=== PATIENT | male | born 1995 | race American Indian/Alaskan Native ===

== ENCOUNTER 2018-08-08 17:52 | Emergency (ER) | payer OTHER ==
--- NOTE | 2018-08-08 17:57 | Emergency Department Report ---
Blank Doc - Documentation Documentation: This is a 22-year-old male that presents with sore throat and URI symptoms. This initial assessment/diagnostic orders/clinical plan/treatment(s) is/are subject to change based on patient's health status, clinical progression and re- assessment by fellow clinical providers in the ED. Further treatment and workup at subsequent clinical providers discretion. Patient/guardians urged not to elope from the ED as their condition may be serious if not clinically assessed and managed. Initial orders include: 1- Patient sent to [facility] for further evaluation and treatment 2- CXR 3- strep swab
--- NOTE | 2018-08-08 19:18 | XRay Report ---
EXAM: XR CHEST ROUTINE 2V HISTORY: cough TECHNIQUE: PA and lateral chest x-ray dated 08/08/2018 at 1812 hours. COMPARISON: None available. FINDINGS: The heart size and mediastinum are within normal limits. The lung pascual and costophrenic angles are clear. There is no acute parenchymal infiltrate, pleural effusion, or pneumothorax seen. The visua lized bony structures are within normal limits. IMPRESSION: 1. No evidence for acute cardiopulmonary disease seen. This document is electronically signed by Pablo Hale MD., August 08 2018 07:16:21 PM ET
[2018-08-08] MEDS ORDERED: BICILLIN L-A IM STA (20:09)
[2018-08-08] MEDS ORDERED: DECADRON PO STA (20:10)
--- NOTE | 2018-08-08 20:27 | Emergency Department Report ---
ED ENT HPI - General Chief complaint: Sore Throat Stated complaint: SORE THROAT Time Seen by Provider: 08/08/18 17:56 Source: patient Mode of arrival: Ambulatory Limitations: No Limitations - History of Present Illness MD complaint: sore throat -: Gradual Location: throat Severity: mild Quality: dull, constant Consistency: constant Improves with: none Worsens with: swallowing, eating Associated Symptoms: fever (feverish, did not take temperature at home), sore throat, rhinorrhea - Related Data Allergies Allergy/AdvReac Type Severity Reaction Status Date / Time No Known Allergies Allergy Unverified 08/08/18 17:55 ED Dental HPI - General Chief complaint: Sore Throat Stated complaint: SORE THROAT Time Seen by Provider: 08/08/18 17:56 Source: patient Mode of arrival: Ambulatory Limitations: No Limitations - Related Data Allergies Allergy/AdvReac Type Severity Reaction Status Date / Time No Known Allergies Allergy Unverified 08/08/18 17:55 ED Review of Systems ROS: Stated complaint: SORE THROAT Other details as noted in HPI Constitutional: denies: chills, fever Eyes: denies: eye pain, eye discharge, vision change ENT: throat pain. denies: ear pain Respiratory: denies: cough, shortness of breath, wheezing Cardiovascular: denies: chest pain, palpitations Endocrine: no symptoms reported Gastrointestinal: denies: abdominal pain, nausea, diarrhea Genitourinary: denies: urgency, dysuria Musculoskeletal: denies: back pain, joint swelling, arthralgia Skin: denies: rash, lesions Neurological: denies: headache, weakness, paresthesias Psychiatric: denies: anxiety, depression Hematological/Lymphatic: denies: easy bleeding, easy bruising ED Past Medical Hx - Past Medical History Previous Medical History?: No - Surgical History Past Surgical History?: No - Social History Smoking Status: Never Smoker Substance Use Type: None ED Physical Exam - General Limitations: No Limitations General appearance: alert, in no apparent distress - Head Head exam: Present: atraumatic, normocephalic - Eye Eye exam: Present: normal appearance - ENT ENT exam: Present: mucous membranes moist, other (pharyngeal erythema with mild edema and moderate exudate. Airway is patent. No drooling, no stridor. Tongue and uvula are midline and normal size. Lymphadenopathy is noted to the tonsillar region bilaterally.) - Neck Neck exam: Present: normal inspection - Respiratory Respiratory exam: Present: normal lung sounds bilaterally. Absent: respiratory distress - Cardiovascular Cardiovascular Exam: Present: regular rate, normal rhythm. Absent: systolic murmur, diastolic murmur, rubs, gallop - GI/Abdominal GI/Abdominal exam: Present: soft, normal bowel sounds - Rectal Rectal exam: Present: deferred - Extremities Exam Extremities exam: Present: normal inspection - Back Exam Back exam: Present: normal inspection - Neurological Exam Neurological exam: Present: alert, oriented X3 - Psychiatric Psychiatric exam: Present: normal affect, normal mood - Skin Skin exam: Present: warm, dry, intact, normal color. Absent: rash ED Course Vital Signs 08/08/18 17:56 Temperature 100.3 F H Pulse Rate 66 Respiratory 16 Rate Blood Pressure 123/67 O2 Sat by Pulse 98 Oximetry Critical care attestation.: If time is entered above; I have spent that time in minutes in the direct care of this critically ill patient, excluding procedure time. ED Disposition Clinical Impression: Exudative pharyngitis Disposition: DC- TO HOME OR SELFCARE Is pt being admited?: No Does the pt Need Aspirin: No Condition: Stable Instructions: Pharyngitis (ED) Additional Instructions: Return to the emergency Department U express any trouble breathing, any trouble swallowing, fever, unable to be controlled with [id number] medications, and his suggestion nature. Symptoms are worsening. Referrals: FIDELIA PAEZ MD [Primary Care Provider] - 3-5 Days
[2018-08-08 20:37] VITALS: BP 119/82
== END 2018-08-08 20:55 | disposition home or self-care (01) ==
LOC: ED 17:52
DX: J02.9 Acute pharyngitis, unspecified (principal)
CPT/HCPCS: 71046; 87116; 87430; 96372; 99284; J0561; J1100